=== PATIENT | female | born 1935 | race Caucasian/White ===

== ENCOUNTER 2020-08-15 05:16 | Observation (INO) ==
--- NOTE | 2020-07-19 10:43 | PAT Medication Instructions ---
Medication Instructions Date of Service July 19, 2020 Home Medications Potassium Ptc 99 mg PO QPM alendronate [Fosamax] 70 mg PO WK ibuprofen [Advil] 200 - 400 mg PO Q6H PRN lactobacillus combination no.4 [Probiotic] 3,000 mmu cells PO QPM multivitamin 1 tab PO QAM niacin 500 mg PO QAM omega 4-afi-nsj-fish oil [[place] 3 Fish Oil] 1 cap PO TID oxybutynin chloride 5 mg PO QAM polyethylene glycol 3350 [Miralax] 17 g PO QPM red yeast rice 600 mg PO BID ASK your surgeon for instructions ibuprofen [Advil] 200 - 400 mg PO Q6H PRN STOP taking 2 weeks before surgery If surgery is within 2 weeks, stop taking as soon as possible. omega 2-tel-lmk-fish oil [[place] 3 Fish Oil] 1 cap PO TID red yeast rice 600 mg PO BID STOP taking 48 hours before surgery niacin 500 mg PO QAM DO NOT take the morning of surgery alendronate [Fosamax] 70 mg PO WK (if scheduled, just take on a different day) multivitamin 1 tab PO QAM oxybutynin chloride 5 mg PO QAM Take morning of surgery Take evening before surgery Potassium Ptc 99 mg PO QPM lactobacillus combination no.4 [Probiotic] 3,000 mmu cells PO QPM polyethylene glycol 3350 [Miralax] 17 g PO QPM Other Notes NOTHING TO EAT OR DRINK AFTER MIDNIGHT THE NIGHT BEFORE SURGERY. If you have any questions please call us at [phone] or [phone] or [phone] or [phone]
--- NOTE | 2020-07-22 09:43 | Anesthesiology Consultation ---
Date of Service July 22, 2020 Assessment & Plan (1) Encounter for pre-operative examination: COVID screening: Per assessment on 07/22: Travel screen negative, no known COVID- 19 positive contacts or current COVID-19 related symptoms. Patient fully vaccinated. Surgeon arranging preop COVID testing (scheduled 08/11; JO Patricia). Awaiting results. Chart Review Chart Review: Acceptable Risk for Surgery and Patient seen in Pre Admission Testing Teaching & Discussion Pre-Anesthesia Teaching/Discussion Notes: Instructed NPO after midnight before surgery,except medications with 15 cc of water. Medication instructions provided according to the PAT guidelines. History Surgery Operation Date: 08/15/20 12:15 Proposed Procedures p Left Total Knee Arthroplasty - Mir Collier MD Height/Weight Height: 5 ft 2 in Weight: 59.2 kg Allergies Allergy/AdvReac Type Severity Reaction Status Date / Time No Known Allergies Allergy Verified 07/18/20 10:15 Medications Home Medications Medication Instructions Recorded Confirmed Last Taken Potassium Ptc 99 mg PO QPM 07/18/20 07/18/20 Unknown alendronate [Fosamax] 70 mg PO WK 07/18/20 07/18/20 Unknown ibuprofen [Advil] 200 - 400 mg PO Q6H PRN 07/18/20 07/18/20 Unknown lactobacillus combination no.4 3,000 mmu cells PO QPM 07/18/20 07/18/20 Unknown [Probiotic] multivitamin 1 tab PO QAM 07/18/20 07/18/20 Unknown niacin 500 mg PO QAM 07/18/20 07/18/20 Unknown omega 2-bfm-myb-fish oil [[place] 3 1 cap PO TID 07/18/20 07/18/20 Unknown Fish Oil] oxybutynin chloride 5 mg PO QAM 07/18/20 07/18/20 Unknown polyethylene glycol 3350 [Miralax] 17 g PO QPM 07/18/20 07/18/20 Unknown red yeast rice 600 mg PO BID 07/18/20 07/18/20 Unknown Past Medical History Medical History Arthritis Cancer Ovarian (40 years ago) Hyperlipidemia OTC tx Migraine Hx Urinary frequency Exercise / Class Metabolic Activity II 4-5 Yardwork/Stairs/Walk up hill (one flight of stairs (no chest pain, no sob)) Past Family History Family History Brother Family history of diabetes mellitus Past Surgical History Surgical History History of bunionectomy of both great toes History of colonoscopy History of ectopic History of foot surgery Hammertoes History of hysterectomy Hx of breast biopsy Multiple (benign) Hx of laparoscopy EDMUNDO (2004) Past Anesthesia History No Hx of Anesthesia Complications and No Family Hx of Anesthesia Complications History of PONV No Hx of PONV and No Hx of Motion Sickness Social History Smoking Status: Never smoker Do You Dip or Chew Tobacco: No Hx Alcohol Use: Yes Alcohol type: wine alcohol intake frequency: holidays/special occasions only Alcohol Intake Frequency Comment: Rare Hx Substance Use: No Review of Systems + snoring. No apnea events. Patient denies chest pain, shortness of breath, dyspnea on exertion, fever, chills, cough, wheezing, palpitations. Physical Exam Vital Signs VITALS BP 146/81 P 58 TEMP 98.0 SP02 98%RA RESP 16 PHYSICAL Full cervical extension range of motion. Full TMJ range of motion. TMD 3.5 finger breaths Mallampati Score 3 Dentition: intact, + bridge (upper front) Lungs: clear throughout to auscultation Cardiac: regular rate and rhythm, no murmurs noted Spine: normal Carotid arteries: negative bruit Extremities: no edema Lab Results Anesthesia Preop Results Results Anesthesia Widget: WBC 5.08 K/uL (4.8-10.8) 07/22/20 Hgb 12.5 g/dL (12.0-16.0) 07/22/20 Hct 37.7 % (37-47) 07/22/20 Plt 274 K/uL (130-400) 07/22/20 Na 143 mmol/L (136-145) 07/22/20 K 4.3 mmol/L (3.5-5.1) 07/22/20 Cl 109 mmol/L (98-107) H 07/22/20 CO2 29 mmol/L (21-32) 07/22/20 BUN 12 mg/dl (7-18) 07/22/20 Creat 0.81 mg/dl (0.6-1.2) 07/22/20 Glucose Level 105 mg/dl (70-99) H 07/22/20 PT 9.9 Seconds (9.0-12.0) 07/22/20 PTT 26.0 Seconds (21.0-31.0) 07/22/20 INR 1.0 (0.9-1.1) 07/22/20 HA1c 6.3 % (4.5-5.6) H 07/22/20 Urine Color Yellow 07/22/20 Urine Appearance Clear (Clear) 07/22/20 Urine pH 8.0 (4.5-7.5) H 07/22/20 Urine Specific [place] 1.006 (1.000-1.030) 07/22/20 Urine Protein Negative (Negative) 07/22/20 Urine Glucose (UA) Negative (Negative) 07/22/20 Urine Ketones Negative (Negative) 07/22/20 Urine Blood Negative (Negative) 07/22/20 Urine Nitrite Negative (Negative) 07/22/20 Urine Bilirubin Negative (Negative) 07/22/20 Urine Urobilinogen Negative (Negative) 07/22/20 Urine Leukocyte Esterase 3+ (Negative) H 07/22/20 Urine WBC (Auto) 5-10 /hpf (0-5) H 07/22/20 Urine RBC (Auto) 0-4 /hpf (0-4) 07/22/20 Urine Hyaline Casts (Auto) 1-5 /lpf (0-5) 07/22/20 Urine Epithelial Cells (Auto) >30 /lpf (0-5) H 07/22/20 Urine Bacteria (Auto) Negative (Negative) 07/22/20 Blood Type A Positive 07/22/20 Antibody Screen NEGATIVE 07/22/20 Testing Electrocardiogram Date: 07/22/20 Findings: + SB @ (58) Chest X-Ray Date: 07/22/20 FINDINGS: There is a thoracolumbar scoliosis. There is no failure. There is no focal pulmonary consolidation. There is minimal blunting of the costophrenic angles but significant pleural effusions or not felt to be present.. Degenerative changes are present within the spine. There is subsegmental atelectasis/scarring at the left lung base.[ IMPRESSION: No active disease in the chest.
--- NOTE | 2020-08-14 15:12 | History & Physical Report ---
Date of Service August 14, 2020 Assessment & Plan (1) Primary osteoarthritis of left knee: Treatment options discussed with patient. She has failed conservative measures as above. She is bone on bone laterally. Risks, benefits and alternatives to surgery including but not limited to infection, DVT, pain, stiffness, need for revision surgery, damage to blood vessels, damage to nerves, PE, , were discussed with the patient and they wish to proceed. Plan on left total knee arthroplasty at [facility] on 08/15/[address] Collier. Plan on ASA 81mg BID 1 mo for DVT prophylaxis, HHPT post discharge. All questions answered. F/u post operatively. History of Present Illness Chief Complaint: Left knee pain Primary Care Provider: NO PCP 85 year old female with PMHx significant for high cholesterol, migraines, and ovarian cancer presents with ongoing left knee pain. Pain is interfering with her daily activities and ability to carry out normal leisure activity. She has failed conservaitve measures including cortisone injections, hyaluronic acid injections, bracing, and NSAIDs. She would like to proceed with surgical intervention. Patient denies headaches, sweats, fevers, chills, double vision, blurred vision, cough, sore throat, dysphagia, chest pain, sob, wheezing, n/v/d/c, numbness, tingling, fatigue, urinary symptoms, mood disorders. ROS positive for left knee pain and stiffness. Allergies Allergy/AdvReac Type Severity Reaction Status Date / Time No Known Allergies Allergy Verified 07/18/20 10:15 Home Medications Medication Instructions Recorded Confirmed Type Potassium Ptc 99 mg PO QPM 07/18/20 07/18/20 History alendronate [Fosamax] 70 mg PO WK 07/18/20 07/18/20 History ibuprofen [Advil] 200 - 400 mg PO Q6H PRN 07/18/20 07/18/20 History lactobacillus combination no.4 3,000 mmu cells PO QPM 07/18/20 07/18/20 History [Probiotic] multivitamin 1 tab PO QAM 07/18/20 07/18/20 History niacin 500 mg PO QAM 07/18/20 07/18/20 History omega 6-jbi-cix-fish oil [[place] 3 1 cap PO TID 07/18/20 07/18/20 History Fish Oil] oxybutynin chloride 5 mg PO QAM 07/18/20 07/18/20 History polyethylene glycol 3350 [Miralax] 17 g PO QPM 07/18/20 07/18/20 History red yeast rice 600 mg PO BID 07/18/20 07/18/20 History Past Med/Surg History Medical History Arthritis Cancer Ovarian (40 years ago) Hyperlipidemia OTC tx Migraine Hx Urinary frequency Surgical History History of bunionectomy of both great toes History of colonoscopy History of ectopic History of foot surgery Hammertoes History of hysterectomy Hx of breast biopsy Multiple (benign) Hx of laparoscopy EDMUNDO (2004) Family History Brother Family history of diabetes mellitus Social History (Updated 07/18/20 @ 10:37 by Brittni Perea RN) Smoking Status: Never smoker Second Hand Exposure: No; Hx Alcohol Use: Yes Alcohol type: wine Hx Substance Use: No Preferred Language: Frisian Communication Ability: Effective Jewel Hole Driller Required: No Beliefs That Will Affect Care: None Current Living Situation: Family Feels Safe at Home: Yes Assistive Devices: Glasses and Hearing Aid - Bilateral Review of Systems All systems reviewed & are unremarkable except as noted in HPI & below Physical Exam Constitutional: well developed and well nourished; no acute distress Eyes: PERRL, conjunctivae normal, anicteric sclerae ENMT: external ear and nose normal, oropharynx normal Neck: trachea midline, no thyromegaly Respiratory: normal respiratory effort, lungs clear to auscultation Cardiovascular: RRR, no murmur, no edema Musculoskeletal: Left knee: Tenderness lateral joint line. Mild effusion. Stable to valgus and varus stress. Valgus alignment. Positive Manuel's. ROM 0- 130 degrees. Skin: no rashes, warm and dry Neurologic: patellar DTR's 2+ bilat, sensation intact Psychiatric: A+Ox3, euthymic affect Results & Data ([facility]) Diagnostic Findings Left knee: Bone on bone lateral compartment, periarticular osteophyte formation and subchondral sclerosis. Valgus alignment
[2020-08-15] MEDS ORDERED: ROPIVACAINE 0.5% HCL/PF 150 MG, BUPIVACAINE 0.75% MPF 20 ML, EPINEPHrine 30MG/30ML (OR ... INSTIL SCH (06:00)
[2020-08-15] MEDS ORDERED: METOCLOPRAMIDE HCL 10 MG TABLET PO SCH (06:00)
[2020-08-15] MEDS ORDERED: TRANEXAMIC ACID 1,000 MG **IV Pre-op IV SCH (06:00)
[2020-08-15] MEDS ORDERED: CeleBREX 200 MG CAP PO SCH (06:00)
[2020-08-15] MEDS ORDERED: ceFAZolin 1000MG 1,000 MG/7.5 ML SYR IV SCH (06:00)
[2020-08-15] MEDS ORDERED: LR 500ML BOLUS, THEN 15ML/HR IV SCH (06:00)
[2020-08-15] MEDS ORDERED: FAMOTIDINE 20 MG TAB PO SCH (06:00)
[2020-08-15] MEDS ORDERED: dexAMETHasone 4 MG TAB PO SCH (06:00)
[2020-08-15] MEDS ORDERED: TRANEXAMIC ACID 1,000 MG **IV Intra-op IV SCH (06:00)
[2020-08-15] MEDS ORDERED: ACETAMINOPHEN 500 MG TAB PO SCH (06:00)
[2020-08-15] MEDS ORDERED: GABAPENTIN 300 MG CAP PO SCH (06:00)
[2020-08-15] MEDS ORDERED: ROPIVACAINE 0.5% 5 MG/ML 30 ML VIAL ONE (06:21)
[2020-08-15] MEDS ORDERED: BUPIVACAINE 0.5 % 5 MG/1 ML PF 10ML VIAL ONE (06:21)
[2020-08-15] MEDS ORDERED: EPINEPHrine INJ 1 MG/ML AMP ONE (06:21)
[2020-08-15] MEDS ORDERED: fentaNYL citrate 100 MCG/2 ML VIAL ONE (06:53)
[2020-08-15] MEDS ORDERED: MIDAZOLAM HCL 1 MG/ML 2ML VIAL ONE (06:53)
[2020-08-15] MEDS ORDERED: ORTHO JOINT ANESTHETIC ONE (07:05)
--- NOTE | 2020-08-15 07:05 | History & Physical Bridge Note ---
Date of Service August 15, 2020 History & Physical Bridge Note I have examined the patient, reviewed the History & Physical and in the interval since the performance of the History & Physical I have noted the following changes of clinical significance: no changes noted
[2020-08-15] MEDS ORDERED: PROPOFOL IV EMULSION 10 MG/ML 20 ML VIAL IV ONE (08:02)
[2020-08-15] MEDS ORDERED: LIDOCAINE 2% 2 ML VIAL/AMP(20MG/ML) INFIL ONE (08:03)
[2020-08-15] MEDS ORDERED: ePHEDrine sulfate 50 MG/ML SYR ONE (08:04)
[2020-08-15] MEDS ORDERED: ATROPINE SULFATE 0.1 MG/ML 10ML SYR IV PRN (08:33)
[2020-08-15] MEDS ORDERED: ePHEDrine sulfate 50 MG/ML AMP IV PRN (08:33)
--- NOTE | 2020-08-15 09:41 | Post Operative Brief Note ---
Immediate Post Op Note v1 Date of Surgery August 15, 2020 Pre & Post Diagnosis Operation Date: 08/15/20 07:15 Pre-Op Diagnosis: Left Knee Primary Osteoarthritis Post-Op Diagnosis: Left Knee Primary Osteoarthritis I identified the patient and participated in the time-out.: Yes Procedure Operation Date: 08/15/20 07:15 Actual Procedures p Left Total Knee Arthroplasty(Left), superficial wound VAC- Mir Collier MD Surgeon Mir Collier MD Lease Broker Valentin MARTINS Estimated Blood Loss 5 Findings Consistent with Post-Op Diagnosis Specimens Bone cuts Drains Hemovac Drain Anesthesia Type MAC Spinal Regional Complications none Disposition Accompanied Patient To Recovery: No Disposition: Recovery Room Overlapping Procedure I was immediately available: during the entire case.
--- NOTE | 2020-08-15 09:51 | Operative Report ---
Post Operative Report Pre & Post Diagnosis Operation Date: 08/15/20 07:15 Pre-Op Diagnosis: Left Knee Primary Osteoarthritis Post-Op Diagnosis: Left Knee Primary Osteoarthritis I identified the patient and participated in the time-out.: Yes Procedure Operation Date: 08/15/20 07:15 Actual Procedures p Left Total Knee Arthroplasty, superficial wound VAC (Left) - Mir Collier MD Surgeon Mir Collier MD Chemical Inspector Valentin MARTINS Estimated Blood Loss 5 Findings Consistent with Post-Op Diagnosis Specimens Bone cuts Drains 2 Hemovac Anesthesia Type MAC Spinal Regional Complications none Disposition Accompanied Patient To Recovery: No Disposition: Recovery Room Indications 85 female with chronic progressive osteoarthritis her left knee. She is udak-je-qhaf lateral compartment has a valgus knee. Patient has instability and failed conservative management. Description of Procedure Patient was taken to the operating room placed supine on the operating table and anesthetized under spinal MAC regional anesthesia. Exam under anesthesia demonstrated a large knee effusion valgus knee 10 degree flexion contracture with full knee flexion otherwise. There is instability with laxity of the MCL collapse into the bone loss of the lateral compartment with valgus stress. There is a positive Benja exam.. A pneumatic tourniquet was placed about the thigh of the left lower extremity. The left lower extremity was prepped and draped in usual fashion. The leg was elevated exsanguinated with an Esmarch bandage and the pneumatic was raised to 300 mm mercury. An anterior incision was made across the left knee. The skin was incised longitudinally subcutaneous flaps were elevated and an incision was made through the medial retinaculum extending up into the mid third of the quadriceps tendon and extended down to the medial tibial tubercle. Intra-articular findings demonstrated chronic ACL tear displaced fragment anteriorly anterior horn medial meniscus tear chronic lateral meniscus tear grade 4 lateral compartment osteoarthritis [id number] with some posterior lateral bone loss tibia plateau, loose bodies. The knee was exposed by excising the loose bodies, infrapatellar fat pad, excising the meniscal remnants and anterior cruciate ligament torn fragments. Any inflamed synovial tissue was resected. The fat pad over the anterior femur was resected for placement of the component in that area. The femur was exposed. The intramedullary drill hole was made into the femur. The distal femoral cutting guide was adjusted to resect a 6 degree valgus cut and we did a +2 cut on the femur due to the flexion contracture. The sizing guide was placed and the drill holes are made in 3 degrees of external rotation to match epicondylar axis. Femur was sized for 8 narrow CR femoral component. The size 8, 4-in-1 cutting block was placed. The anterior and posterior chamfer cuts were made. The knee was extended and a subperiosteal peel lateral release was performed around the patella. The patella width was measured and width was reproduced using freehand cut technique. The 32 x 8.5 millimeter symmetrical patella was used. 3 drill holes are made for the pegs. The tibia was exposed. The external tibial cutting guide was positioned to resect a perpendicular cut to the long axis of the tibia and matching the posterior slope and the proximal cut was made with the oscillating saw. All osteophytes were resected. The lamina clinical reviewer was used to assess ligamentous balance and the ligaments were balanced in extension and flexion. The tibia was reexposed and measured for a size E tibial component. This was externally rotated in line with the tibial tubercle and the fixation pins were drilled. The proximal tibia was fashioned with the drill and punch. The size 8 CR femoral trial was inserted. The trial MC inserts were used. The 12 mm insert gave balanced ligaments through full range of motion. The patella tracked centrally. the trials were removed. The orthomix anesthetic cocktail was injected per protocol. The knee was then copiously irrigated with pulsatile lavage saline solution. The final components were cemented with Simplex cement. The final components were Marquita [employer] persona left 8 narrow CR femoral component, left E tibial component, 12 MC polyethylene, 32 x 8.5 patella. After the cement cured with the knee in full extension the Betadine soak was used per protocol. The knee joint was copiously irrigated with antibiotic solution with bacitracin. 2 drains were brought out laterally and connected to a Hemovac. The quadriceps tendon and medial retinaculum were closed with interrupted [id number] #1 Vicryl sutures. The knee was taken through a full range of motion and repair was secure. Patient has 0 through 140 degrees range of motion. The subcutaneous tissues were closed with 2-0 Vicryl sutures and skin was closed with janny. Sterile dressings were applied and the patient tolerated the procedure well. Valentin MARTINS my physician museum assistant, assisted in soft tissue retraction instrument management leg positi oning the closure applied the superficial wound VAC and will participate in the postoperative care of the patient. I attest to the content of the Intraoperative Record and any orders documented therein. Any exceptions are noted below.
--- NOTE | 2020-08-15 10:16 | Anesthesiology Progress Note ---
Date of Service August 15, 2020 Anesthesia Post Procedure Vital Signs Vital Signs: Temp Pulse Pulse Resp BP BP Pulse Ox 08/15/20 10:10 36.2 C L 80 16 120/71 98 08/15/20 10:00 84 16 141/63 H 98 08/15/20 09:50 80 16 143/57 H 99 08/15/20 09:43 36.0 C L 84 16 136/61 98 08/15/20 06:11 37 C 75 18 168/83 H 95 Transfer of Care Handoff Completed per policy Notes Mental Status: alert / awake / arousable Patient Amnestic to Procedure: Yes Nausea / Vomiting: adequately controlled Pain: adequately controlled Airway Patency, RR, SpO2: stable & adequate BP & HR: stable & adequate Hydration State: stable & adequate Neuraxial Anesthesia: was administered and sensory block is resolving Anesthetic Complications: no major complications apparent
--- NOTE | 2020-08-15 10:27 | XRay Report ---
XR knee LT 1 or 2V routine CLINICAL HISTORY: Surgical Post Op COMPARISON: None. DISCUSSION: There are postsurgical changes of a total left knee arthroplasty and patellar resurfacing . There are overlying skin janny and surgical drains. The femoral tibial components appear well sea guillermo. The provided views are slightly limited from a positioning standpoint. IMPRESSION: Postsurgical changes of a total left knee arthroplasty. ACT 112: Negative or not required by law. Electronically signed by: Ronni Coronel M.D. 08/15/2020 10:26 AM
[2020-08-15] MEDS ORDERED: oxyCODONE HCL IR 5 MG TAB (IMMEDIATE RELEASE) PO PRN (10:52)
[2020-08-15] MEDS ORDERED: ONDANSETRON INJ 2 MG/ML 2 ML VIAL IV PRN (10:52)
[2020-08-15] MEDS ORDERED: MAGNESIUM HYDROXIDE SUSP 30 ML UDC PO PRN (10:52)
[2020-08-15] MEDS ORDERED: NALOXONE HCL 0.4 MG/1 ML VIAL/CARP IV PRN (10:52)
[2020-08-15] MEDS ORDERED: METOCLOPRAMIDE HCL INJ 5 MG/ML 2 ML VIAL IV PRN (10:52)
[2020-08-15] MEDS ORDERED: HYDROmorphone INJ 0.5 MG/0.5 ML SYR IV PRN (10:52)
[2020-08-15] MEDS ORDERED: bisacodyL 10 MG SUPP PR PRN (10:52)
--- NOTE | 2020-08-15 11:56 | Hospitalist Consultation ---
Date of Consultation August 15, 2020 Assessment & Plan (1) Primary osteoarthritis of left knee: - Pain management, bowel regimen and DVT ppx per the primary team, superficial wound VAC in place - PT/OT consults, pt is planning on outpatient therapy with . - Follow am CBC to monitor for acute blood loss - Discussed the case with Dr. Rand regarding somnolence, their team is aware, patient awakens to verbal stimuli, required sternal rub, will continue to monitor. - VSS at 11:30 and on recheck at 12:10 while at bedside. Blood glucose was 139 at bedside. - Intra operatively got propofol 200 mg IV, fentanyl 100 mcg IV versed 2 mg IV. Has not received any pain medications since coming up to the floor. Discussed with nursing. (2) Migraine: - History of such, stable (3) Urinary frequency: - Continue oxybutynin, taveras catheter in place currently draining yellow urine (4) Hyperlipidemia: Continue omega-3 fish oil, MVI DVT PPx: - teds, scds, ASA 81 mg twice daily CODE: Full code Dispo: From home, likely to remain in the hospital x 1-2 days. Thank you for involving us in the care of Ms. Hanson. Please do not hesitate to call with questions or concerns. At this time medicine service will follow along. Supervising Physician Co-Signing Physician Notes Patient is an 85-year-old female with history of ovarian cancer, migraine, hyperlipidemia, urinary incontinence, prediabetes, CKD III and other medical problems was seen and examined postop after having left knee arthroplasty by Dr. Collier. Patient is doing well postoperatively. Initially was very drowsy secondary to sedation and poor sleep. Denies any significant pain at surgical site. Reports having some numbness in the feet. Denies chest pain, shortness of breath, dizziness, nausea, abdominal pain. On exam patient is moderately built and nourished, no apparent distress, normocephalic atraumatic, lungs are clear to auscultation, normal breath sounds, S1 s2, no murmur, no pedal edema, abdomen soft, nontender, normal bowel sounds, alert, awake, oriented, grossly no focal deficits, left knee surgical site in dressing. Patient is consulted for postop medical management. Hold narcotics for excessive sedation. Monitor for postop anemia. Activity, wound care, DVT prophylaxis as per primary team. Continue bowel regimen to prevent constipation. I personally reviewed the record. Patient is interviewed and examined at bedside. Patient's care is coordinated with Ayla Fermin PA-C. Please refer to the documentation above for details of patient's presentation and for discussion of other issues. History of Present Illness Reason for Consultation: Medical management Requesting Physician: Dr. Adams Attending Physician: Mir Collier MD History of Present Illness This is an 85-year-old female with PMHx of ovarian cancer over 40 years ago, HLD, migraine, urinary frequency, arthritis who underwent left total knee replacement by Dr. Adams 08/15/2020. Pt was initially very difficult to awaken, required sternal rub x2, arm drop startle, and still was not responding to stimuli. She did eventually wake up with loud verbal stimuli and sternal rub. She was able to participate in conversation with me and reports that she has no pain, slept 2-3 hours last night, beacuse she was anticipating surgery and that this is not her normal. Pt lives at home with her daughter. Denies any other acute complaints. Patient anticipates doing PT/OT with visiting nurses/PT/OT at home. She has not yet eaten anything or drink anything after surgery. Allergies Allergy/AdvReac Type Severity Reaction Status Date / Time No Known Allergies Allergy Verified 08/15/20 05:53 Home Medications Medication Instructions Recorded Confirmed Type Potassium Ptc 99 mg PO QPM 07/18/20 08/15/20 History alendronate [Fosamax] 70 mg PO WK 07/18/20 08/15/20 History ibuprofen [Advil] 200 - 400 mg PO Q6H PRN 07/18/20 08/15/20 History lactobacillus combination no.4 3,000 mmu cells PO QPM 07/18/20 08/15/20 History [Probiotic] multivitamin 1 tab PO QAM 07/18/20 08/15/20 History niacin 500 mg PO QAM 07/18/20 08/15/20 History omega 6-cnu-ljj-fish oil [[place] 3 1 cap PO TID 07/18/20 08/15/20 History Fish Oil] oxybutynin chloride 5 mg PO QAM 07/18/20 08/15/20 History polyethylene glycol 3350 [Miralax] 17 g PO QPM 07/18/20 08/15/20 History red yeast rice 600 mg PO BID 07/18/20 08/15/20 History Patient History Medical History (Updated 08/15/20 @ 11:53 by Ayla Fermin PA-C) Arthritis Cancer Ovarian (40 years ago) Hyperlipidemia OTC tx Migraine Hx Urinary frequency Surgical History History of bunionectomy of both great toes History of colonoscopy History of ectopic History of foot surgery Hammertoes History of hysterectomy Hx of breast biopsy Multiple (benign) Hx of laparoscopy EDMUNDO (2004) Family History Brother Family history of diabetes mellitus Social History (Updated 07/18/20 @ 10:37 by Brittni Perea RN) Smoking Status: Never smoker Second Hand Exposure: No; Do You Dip or Chew Tobacco: No; Hx Alcohol Use: Yes Alcohol type: wine Hx Substance Use: No Preferred Language: Kazakh Communication Ability: Effective Purchasing Department Clerk Required: No Beliefs That Will Affect Care: None Current Living Situation: Family Other Information That Helps Us Care for You: No Feels Safe at Home: Yes Safety Concerns: Feels Safe At This Time Assistive Devices: Walker Assistive Devices Comment: PERMANENT UPPER BRIDGE Review of Systems Review of Systems: Constitutional: No fever, sweats or chills Eyes: No diplopia, no worsening or blurred vision ENT: normal hearing, no trouble swallowing Respiratory: No cough, sputum, dyspnea at rest or on exertion, does not wear O2 at baseline. Cardiovascular: No chest pain, tightness or palpitations Abdomen: No pain, nausea, vomiting, diarrhea or constipation Musculoskeletal: No joint pain, calf pain, swelling Neurologic: No weakness, numbness/tingling, or balance problems Psychiatric: No anxiety or depression Skin: No rash or itch Physical Exam Physical Exam: General: asleep, snoring loudly, was able to be awoken after multiple sternal rubs. Once awake she mostly keeps eyes closed, but participates in conversation and answers questions appropriately. No apparent distress Head: Normocephalic, atraumatic ENT: PERRL, EOMI, no pharyngeal exudate, mucous membranes moist Chest: Clear to auscultation, on room air, no adventitious breath sounds, on 1.5 L via NC. Cardiac: Regular rate and rhythm, no murmur, no JVD, normal peripheral pulses, good capillary refill Abdominal: NABS x 4 quadrants, soft, nondistended, nontender to palpation, no rebound or guarding : taveras cath in place Extremities: LLE with wound vac in place, ice pack on, RADHA wrap, dressing is c/d/i. Able to move toes without difficulty and sensation to light touch is intact. Normal inspection, no peripheral edema or erythema, calfs nontender to palpation Psych: Normal mood and affect Neuro: AAO x 3, strength intact bilaterally and rated 5/5, no motor deficits, speech is clear, no peripheral sensory deficits Results & Data Results & Data ([facility]) Vital Signs (Past 12 Hours) Vital Signs Temp Pulse Pulse Resp BP BP Pulse Ox 08/15/20 11:31 36.4 C L 96 H 16 129/74 100 08/15/20 11:00 36.4 C L 70 16 133/75 100 08/15/20 10:30 36.4 C L 84 16 130/75 98 08/15/20 10:15 36.4 C L 71 16 148/60 H 95 08/15/20 10:10 80 16 120/71 98 08/15/20 10:00 84 16 141/63 H 98 08/15/20 09:50 80 16 143/57 H 99 08/15/20 09:43 36.0 C L 84 16 136/61 98 08/15/20 06:11 37 C 75 18 168/83 H 95
[2020-08-15] MEDS ORDERED: SODIUM CHLORIDE 0.9% 1000ML 1,000 ML IV SCH (12:00)
[2020-08-15] MEDS: ACETAMINOPHEN 500 MG TAB PO SCH ×2 (13:40→21:37)
[2020-08-15] MEDS: ceFAZolin 1000MG 1,000 MG/7.5 ML SYR IV SCH ×2 (17:25→23:07)
[2020-08-15] MEDS ORDERED: NON-FORMULARY MEDICATION (Lactobacillus Combination No.4 [Probiotic] 3 billion cell Capsul PO SCH (21:00)
[2020-08-15] MEDS ORDERED: SENNA 8.6 MG TAB PO SCH (21:00)
[2020-08-15] MEDS ORDERED: [UNRECOGNIZED DRUG - OTHER] PO SCH (21:00)
[2020-08-15] MEDS ORDERED: NON-FORMULARY MEDICATION (Red Yeast Rice 600 mg Tablet) PO SCH (21:00)
[2020-08-15] MEDS ORDERED: POLYETHYLENE (MIRALAX) 17 GM PACK PO SCH (21:00)
[2020-08-15] MEDS: DOCUSATE SODIUM 100 MG CAP PO SCH (21:34)
[2020-08-15] MEDS: ASPIRIN 81 MG ECTAB PO SCH (21:34)
[2020-08-15] MEDS: CeleBREX 200 MG CAP PO SCH (21:35)
[2020-08-16] MEDS: ACETAMINOPHEN 500 MG TAB PO SCH ×2 (05:57→15:46)
[2020-08-16 06:21] LABS: Hematocrit (blood only) 32.3 % (37-47); Hemoglobin 10.4 g/dL (12.0-16.0); Mean Corpuscular Hemoglobin 30.4 pg (25-34); Mean Corpuscular Hgb Conc 32.2 g/dL (32-36); Mean Corpuscular Volume 94.4 fL (80-100); Mean Platelet Volume 8.1 fL (7.4-10.4); Platelet Count 236 K/uL (130-400); RDW Coefficient of Variation 13.6 % (11.5-14.5); RDW Standard Deviation 47.5 fL (36.4-46.3); Red Blood Count 3.42 M/uL (4.2-5.4)
[2020-08-16 06:53] LABS: BUN Creatinine Ratio 14.1 (10-20); Calcium 8.1 mg/dl (8.5-10.1); Creatinine Clr Calc Pharmacy 35.5 ml/min; Est GFR (African American) 64.2 ml/min; Est GFR (Non-African American) 55.4 ml/min; Magnesium 2.4 mg/dl (1.8-2.4); Potassium 3.7 mmol/L (3.5-5.1)
[2020-08-16] MEDS ORDERED: MULTIVITAMIN TAB PO SCH ×2 (09:00)
[2020-08-16] MEDS ORDERED: NIACIN 500 MG TAB PO SCH (09:00)
[2020-08-16] MEDS ORDERED: OXYBUTYNIN CHLORIDE 5 MG TAB PO SCH (09:00)
--- NOTE | 2020-08-16 09:49 | Orthopedic Progress Note ---
Date of Service August 16, 2020 Assessment & Plan (1) Primary osteoarthritis of left knee: Postop day 1 status post left total knee arthroplasty. PT/OT protocols. Weightbearing as tolerated. DVT prophylaxis-aspirin p.o. twice daily, SCDs. Pain management as written. DC planning-patient is planning for [facility] discharge. We will recheck her later today to see how she is progressing and possible discharge to [facility] today. Admission and Anticipated Discharge Date Admission Date: August 15, 2020 Subjective Postop day 1 Patient is sitting up in bed. Awake and alert. No complaints this morning. Comfortable. Pain is controlled. Denies shortness of breath, chest pain, lightheadedness. Patient states that she is planning on going to [facility] when discharged. Physical Exam Physical Exam: Dressings are clean, dry, and intact. Calves are soft and nontender. Neurovascular intact. Toes are mobile. She has good dorsiflexion and plantarflexion of the left foot. Hemovac drainage is minimal. Results & Data ([facility]) Vital Signs (Past 12 Hours) Vital Signs Temp Pulse Pulse Resp BP BP Pulse Ox 08/16/20 08:01 36.7 C 52 L 14 150/72 H 95 08/16/20 06:17 36.6 C 59 L 16 119/70 96 08/16/20 04:00 36.7 C 64 16 120/67 93 08/15/20 22:52 36.9 C 61 16 135/69 100
[2020-08-16] MEDS: CeleBREX 200 MG CAP PO SCH (10:08)
[2020-08-16] MEDS: ASPIRIN 81 MG ECTAB PO SCH (10:08)
[2020-08-16] MEDS: DOCUSATE SODIUM 100 MG CAP PO SCH (10:12)
--- NOTE | 2020-08-16 12:56 | Hospitalist Progress Note ---
Date of Service August 16, 2020 Assessment & Plan (1) Primary osteoarthritis of left knee: S/P left knee arthroplasty by POD#1 Post op blood loss anemia Pain is controlled Continue bowel regimen to prevent constipation Wound care, activity, DVT prophylaxis as per primary team Continue PT OT Monitor CBC No indication for blood transfusion currently (2) Migraine: stable (3) Urinary frequency: - Continue oxybutynin (4) Hyperlipidemia: Continue omega-3 fish oil, MVI DVT Px: As per Primary Service CODE STATUS: Full code Admission and Anticipated Discharge Date Admission Date: August 15, 2020 Subjective Patient is seen and examined at bedside Left knee pain at surgical site is controlled Denies chest pain, shortness breath, dizziness, nausea, abdominal pain Offers no complaints Review of Systems Review of Systems: All systems reviewed & are unremarkable except as noted in HPI & below Physical Exam Physical Exam: Physical Exam: Vitals signs as noted above General Appearance:Moderately built and nourished, no apparent distress Head: normocephalic, Atraumatic Eyes: normal inspection, EOMI Neck: supple, Trachea midline Respiratory/Chest: Normal breath sounds, CTA Cardiovascular: S1, S2, No murmur Abdomen/GI:Soft, Non tender, Bowel sounds present Extremities/Musculoskeletal:normal inspection, no edema, Left knee surgical site in dressing, +drain Neurologic/Psych:AAOX3, grossly no focal neurological deficits Skin: normal color, warm Results & Data Results & Data ([facility]) Vital Signs (Past 12 Hours) Vital Signs Temp Pulse Pulse Resp BP BP Pulse Ox 08/16/20 11:21 36.6 C 51 L 13 118/69 97 08/16/20 08:01 36.7 C 52 L 14 150/72 H 95 08/16/20 06:17 36.6 C 59 L 16 119/70 96 08/16/20 04:00 36.7 C 64 16 120/67 93 Laboratory Results Short CBC 08/16/20 Range/Units 06:09 WBC 8.00 (4.8-10.8) K/uL Hgb 10.4 L (12.0-16.0) g/dL Hct 32.3 L (37-47) % Plt Count 236 (130-400) K/uL BMP 08/16/20 06:09 Sodium 142 Potassium 3.7 Chloride 110 H Carbon Dioxide 31 BUN 13 Creatinine 0.95 Glucose 92 Calcium 8.1 L
--- NOTE | 2020-08-17 16:48 | Discharge Summary ---
Date of Service August 17, 2020 Admission HPI Per Admitting Provider 85 year old female with PMHx significant for high cholesterol, migraines, and ovarian cancer presents with ongoing left knee pain. Pain is interfering with her daily activities and ability to carry out normal leisure activity. She has failed conservaitve measures including cortisone injections, hyaluronic acid injections, bracing, and NSAIDs. She would like to proceed with surgical intervention. Patient denies headaches, sweats, fevers, chills, double vision, blurred vision, cough, sore throat, dysphagia, chest pain, sob, wheezing, n/v/d/c, numbness, tingling, fatigue, urinary symptoms, mood disorders. ROS positive for left knee pain and stiffness. Admission Exam Per Admitting Provider Constitutional: well developed and well nourished; no acute distress Eyes: PERRL, conjunctivae normal, anicteric sclerae ENMT: external ear and nose normal, oropharynx normal Neck: trachea midline, no thyromegaly Respiratory: normal respiratory effort, lungs clear to auscultation Cardiovascular: RRR, no murmur, no edema Musculoskeletal: Left knee: Tenderness lateral joint line. Mild effusion. Stable to valgus and varus stress. Valgus alignment. Positive Manuel's. ROM 0- 130 degrees. Skin: no rashes, warm and dry Neurologic: patellar DTR's 2+ bilat, sensation intact Psychiatric: A+Ox3, euthymic affect Principal Diagnosis Left knee osteoarthritis Discharge Exam Constitutional well developed and well nourished; no acute distress Eyes PERRL, conjunctivae normal, anicteric sclerae ENMT external ear and nose normal, oropharynx normal Neck trachea midline, no thyromegaly Respiratory normal respiratory effort, lungs clear to auscultation Cardiovascular RRR, no murmur, no edema Skin no rashes, warm and dry Neurologic patellar DTR's 2+ bilat, sensation intact Psychiatric A+Ox3, euthymic affect Discharge Data Allergies Allergy/AdvReac Type Severity Reaction Status Date / Time No Known Allergies Allergy Verified 08/15/20 05:53 Consultations 08/10/20 13:16 Consult Hospitalist Routine Procedures Performed Operation Date: 08/15/20 07:15 Actual Procedures p Left Total Knee Arthroplasty(Left) - Mir Collier MD Ordered Studies 08/15/20 05:00 US - OR guided needle placemen Routine Hospital Course (1) Primary osteoarthritis of left knee: Patient presented for same day admission following left total knee arthroplasty on 08/15/20. She tolerated procedure well. The Patient had an uneventful hospital course. Post-operatively, her activity was progressed and well tolerated. They participated in PT with ambulation distance of 400 feet. ROM of operative knee reached 73 degrees. Labs remained stable- lowest he moglobin recorded: 10.[address] Bruno Rolle of medical service was consulted for medical management during admission. Pain controlled on oral medications. Please refer to daily progress notes and PT notes for complete details. After exam on 08/16/20, patient was felt to be stable for discharge home with home health PT. Patient will f/u in the office in about 2 weeks for further evaluation including x-rays and incision check, sooner if having any issues or concerns. Postop day 1 status post left total knee arthroplasty. PT/OT protocols. Weightbearing as tolerated. DVT prophylaxis-aspirin p.o. twice daily, SCDs. Pain management as written. DC planning-patient [facility]. We will recheck her later today to see how she is progressing and possible discharge to [facility] today. Lab Results 08/15/20 08/15/20 08/15/20 Range/Units 05:30 05:30 12:11 WBC (4.8-10.8) K/uL RBC (4.2-5.4) M/uL Hgb (12.0-16.0) g/dL Hct (37-47) % MCV (80-100) fL MCH (25-34) pg MCHC (32-36) g/dL RDW Std Deviation (36.4-46.3) fL RDW Coeff of Antoine (11.5-14.5) % Plt Count (130-400) K/uL MPV (7.4-10.4) fL Sodium (136-145) mmol/L Potassium (3.5-5.1) mmol/L Chloride (98-107) mmol/L Carbon Dioxide (21-32) mmol/L Anion Gap (3-11) BUN (7-18) mg/dl Creatinine (0.6-1.2) mg/dl Est Cr Clr Drug Dosing ml/min Est GFR ( Amer) ml/min Est GFR (Non-Af Amer) ml/min BUN/Creatinine Ratio (10-20) Glucose (70-99) mg/dl POC Glucose 139 H (70-99) mg/dl Calcium (8.5-10.1) mg/dl Magnesium (1.8-2.4) mg/dl COVID-19 Eval Order Covid19 IDNow atMDEC SARS-CoV-2, RNA, NAAT NEGATIVE (NEGATIVE) 08/16/20 08/16/20 Range/Units 06:09 06:09 WBC 8.00 (4.8-10.8) K/uL RBC 3.42 L (4.2-5.4) M/uL Hgb 10.4 L (12.0-16.0) g/dL Hct 32.3 L (37-47) % MCV 94.4 (80-100) fL MCH 30.4 (25-34) pg MCHC 32.2 (32-36) g/dL RDW Std Deviation 47.5 H (36.4-46.3) fL RDW Coeff of Antoine 13.6 (11.5-14.5) % Plt Count 236 (130-400) K/uL MPV 8.1 (7.4-10.4) fL Sodium 142 (136-145) mmol/L Potassium 3.7 (3.5-5.1) mmol/L Chloride 110 H (98-107) mmol/L Carbon Dioxide 31 (21-32) mmol/L Anion Gap 1.0 L (3-11) BUN 13 (7-18) mg/dl Creatinine 0.95 (0.6-1.2) mg/dl Est Cr Clr Drug Dosing 35.5 ml/min Est GFR ( Amer) 64.2 ml/min Est GFR (Non-Af Amer) 55.4 ml/min BUN/Creatinine Ratio 14.1 (10-20) Glucose 92 (70-99) mg/dl POC Glucose (70-99) mg/dl Calcium 8.1 L (8.5-10.1) mg/dl Magnesium 2.4 (1.8-2.4) mg/dl COVID-19 Eval Order SARS-CoV-2, RNA, NAAT (NEGATIVE) Total Time Total Time Spent Total Time Spent (In Minutes): 20 Discharge Plan Discharge Items Patient Disposition: Home - Home Health Services Reason For Visit: Left Knee Primaary Osteoarthritis Discharge Diagnosis: Left knee Osteoarthritis Activity: Per Instructions section Weightbearing: Left weightbearing Weightbearing Comment: as tolerated with walker Non-emergency contact: Surgeon Call non-emergency contact if: your pain is not controlled, your temperature is above 101.5, your wound has increased redness and your wound has increased drainage Follow-up/Referrals: Daniel Buitrago V., [Primary Care Provider] - Diet: Regular Addtl Attending Provider Instructions: ACTIVITY RECOMMENDATIONS: SELF CARE INSTRUCTIONS AFTER TOTAL KNEE REPLACEMENT A. You may need to continue a physical therapy program after discharge from the hospital. There are several options available to you. Your doctor will assist you in selecting the best one for you. 1. An out-patient facility 2 to 3 times a week for therapy or home therapy. 2. Continue working on all exercises taught to you in the hospital. Your goals should be to increase bending of your knee to 90 degrees and beyond and to fully straighten your knee. B. You may progress at your own pace from walking with a walker or crutches to a cane; then to no assistive devices. C. Make walking a part of your daily routine. Be up as much as comfortable with rest periods throughout the day. Rest with leg elevation is very important. Use the ice wrap frequently for the first 3-4 weeks. D. There are no restrictions on activities. You may ride in a car, shop, participate in computer programming professor and all social activities. E. Wear the long elastic stockings (KAYLA hose) 20 hours a day for 2 weeks after surgery. They can be removed several times a day for laundering and for a bath. F. You may shower, no tub baths until cleared by your doctor. SPECIAL CARE INSTRUCTIONS: VERY IMPORTANT TO READ AND REVIEW A. There are a few signs you need to watch for after you are home. Call [facility] if you notice any of the followin. Increased severe knee pain. Some pain is expected especially when you exercise. 2. Increased swelling in your leg or knee; pain or swelling of the calf muscle in either lower leg. 3. Any fluid drainage from the incision. 4. Shortness of breath or chest pain. B. Please call [facility] at if you have any concerns or questions about your operation or recovery. The doctor or his nurse will return your call promptly. C. You must take antibiotics before dental work, bladder, bowel or other surgery. Your doctor will provide you with a permanent care to carry describing this precaution. IMPORTANT: * REMEMBER TO TAKE ASPIRIN, 81 MG, TWICE DAILY FOR 4 WEEKS UNLESS OTHERWISE DIRECTED. THIS IS YOUR BLOOD THINNER. * HIGH RISK PATIENTS MAY BE PRESCRIBED A STRONGER BLOOD THINNER. THIS WILL BE PROVIDED AT DISCHARGE. * CALL IF INCREASED PAIN, REDNESS, DRAINAGE OR FEVER GREATER THAT 101. * WEAR KAYLA HOSE 20 HOURS PER DAY FOR 2 WEEKS. * AMIRA Dressing - This is a large suction dressing covering your incision. This will help pull any excess drainage from the wound and allow your incision to heal properly. You may shower with this if you can keep the unit outside of the shower. If any bleeding or leakage is noted please call your doctor's office. This will remain on your incision for 7 days and then should be removed. This can be done yourself or by the home nursing staff if applicable. The entire unit is disposable once removed. Once removed, keep incision clean and dry. If redness or drainage is noted, please call your surgeon. . FOLLOW UP VISIT: If appointment is not already scheduled: Please call [facility] to make a follow-up appointment for 2 weeks after your surgery at . Stand-Alone Forms: [facility], Opioid Pain Management, Smoking Cessation Medications and DC Order Prescriptions: New aspirin 81 mg Tablet,Delayed Release (Dr/Ec) 81 mg PO BID 30 Days Qty: 60 RF: 0 acetaminophen 500 mg Tablet 1,000 mg PO Q8 14 Days Qty: 84 RF: 0 polyethylene glycol 3350 [Miralax] 17 gram powder in packet 17 g PO DAILY PRN (Reason: constipation) Qty: 5 RF: 0 oxycodone 5 mg Tablet 5 mg PO Q4H MDD 6 PRN (Reason: pain) Qty: 30 RF: 0 Continued multivitamin Tablet 1 tab PO QAM RF: 0 polyethylene glycol 3350 [Miralax] 17 gram Powder In Packet 17 g PO QPM RF: 0 alendronate [Fosamax] 70 mg Tablet 70 mg PO WK RF: 0 oxybutynin chloride 5 mg Tablet 5 mg PO QAM RF: 0 Probiotic 3 billion cell Capsule 3,000 mmu cells PO QPM RF: 0 red yeast rice 600 mg Tablet 600 mg PO BID RF: 0 niacin 500 mg Tablet 500 mg PO QAM RF: 0 Potassium Ptc 99 mg PO QPM RF: 0 Discontinued ibuprofen [Advil] 200 mg Tablet 200 - 400 mg PO Q6H PRN (Reason: Pain) RF: 0 [place] 3 Fish Oil 900-1,400 mg Capsule,Delayed Release(Dr/Ec) 1 cap PO TID RF: 0 Discharge Orders: Discharge Order (Routine); Ordered 08/16/20 Ordered By: Gee Hendrickson/Other Patient Handouts: DVT Post Op Prevention Admission Data Admit Date/Time: 08/15/20 09:46 Attending Provider: Mir Collier Admit Provider: Mir Collier Primary Care Provider: Daniel Buitrago V. Other Providers: Bruno Rolle ; [facility] ; [facility] Other Interventions: Discharge Summary Assessment (RN) Last Done: 08/16/20 13:54
== END 2020-08-16 16:43 | disposition home health service (06) ==
LOC: 3E 05:16 → ASU 05:16